=== PATIENT | female | born 1975 | race Caucasian/White ===

== ENCOUNTER 2016-11-03 17:52 | Emergency (ER) | payer OTHER ==
[~2016-11-03] VITALS: Ht 162.6 cm; Wt 83.9 kg
--- NOTE | ~2016-11-03 | US134 ---
[facility] A Service of [facility] RADIOLOGY TEXT RESULTS PATIENT: RHYS FOWLER LOCATION: [facility] : 73 UNIT #: [id number] AGE: [address]: Becky Vital MD SEX: F ORDER DR: [id number] [facility] [address] [place], [place] [address] [id number] E MR#: [id number] Acc #: [id number] NAME: RHYS FOWLER : 1975 SEX: F STUDY DATE/TIME: 11/03/2016 19:40 UNIT: [facility] ROOM: STUDY DESCRIPTION: US Transvaginal Attending Physician: Becky Vital M.D. Ordering Physician: Becky Vital M.D. Primary Care Physician: Rui Liu M.D. MEDICAL IMAGING REPORT This report is preliminary unless electronic signature is present EXAM Pelvic ultrasound. INDICATIONS Right adnexal pain for 1 day. Last menstrual period in 2012. Prior endometrial ablation and tubal ligation. G4, P3. COMPARISON Pelvic ultrasound 03/22/2010. FINDINGS The uterus is anteverted. The uterus measures 7.8 x 4.3 x 5.1 cm. Echogenicity and echotexture of the myometrium is homogeneous. The endometrial stripe is fairly homogeneous measuring 0.9-1.0 cm in thickness. The left ovary measures 2.1 x 1.7 x 1.7 cm. The right ovary measures 2.2 x 1.9 x 2 cm. Echogenicity and echotexture of the ovaries are normal. There is normal color Doppler flow. No adnexal mass or free pelvic fluid. IMPRESSION Negative pelvic ultrasound. Dictated by... Lyle De La Cruz M.D. THIS IS AN ELECTRONICALLY VERIFIED REPORT Lyle De La Cruz M.D. at 11/04/2016 3:11 PM Lacy/robetr TD: 11/03/2016 22:09 JOB #: [id number] [facility] A Service of [facility] RADIOLOGY TEXT RESULTS PATIENT: RHYS FOWLER LOCATION: [facility] #: [id number] : 73 UNIT #: [id number] AGE: [address]: Becky Vital MD SEX: F ORDER DR: MEDICAL IMAGING REPORT Page 1 of 1 COPY
--- NOTE | ~2016-11-03 | CT4 ---
[facility] A Service of [facility] RADIOLOGY TEXT RESULTS PATIENT: RHYS FOWLER LOCATION: [facility] : 73 UNIT #: [id number] AGE: [address]: Becky Vital MD SEX: F ORDER DR: [id number] [facility] [address] [place], [place] [address] [id number] E MR#: [id number] Acc #: [id number] NAME: RHYS FOWLER. : 1975 SEX: F STUDY DATE/TIME: 11/03/2016 20:10 UNIT: [facility] ROOM: STUDY DESCRIPTION: CT Abd and Pelv Wo Cont Attending Physician: Becky Vital M.D. Ordering Physician: Becky Vital M.D. Primary Care Physician: Rui Liu M.D. MEDICAL IMAGING REPORT This report is preliminary unless electronic signature is present EXAM CT of the abdomen and pelvis. INDICATIONS Right-sided abdominal pain. Right flank pain for 2 days. Mid abdominal pain. TECHNIQUE CT of the abdomen and pelvis without contrast. Coronal and sagittal reconstructions were obtained. This CT exam was performed with one or more of the following radiation dose reduction techniques: automatic exposure control, adjustment of mA and/or kV according to patient size, and iterative reconstruction. COMPARISON None available. FINDINGS ABDOMEN: No urinary calculi. No hydronephrosis. Noncontrast evaluation of the remaining solid abdominal organs are within normal limits. There is a calcified gallstone in the gallbladder fundus. No gallbladder distension. The bowel is not dilated. No enlarged retroperitoneal or mesenteric lymph nodes. The appendix is normal. PELVIS: Uterus and ovaries are within normal limits. Bladder is unremarkable. No acute osseous abnormalities. IMPRESSION 1. No acute findings of the abdomen and pelvis. No urinary calculi. No hydronephrosis. [facility] A Service of [facility] RADIOLOGY TEXT RESULTS PATIENT: RHYS FOWLER LOCATION: [facility] : 73 UNIT #: [id number] AGE: [address]: Becky Vital MD SEX: F ORDER DR: 2. Cholelithiasis. No gallbladder distension. Dictated by... Lyle De La Cruz M.D. THIS IS AN ELECTRONICALLY VERIFIED REPORT Lyle De La Cruz M.D. at 11/04/2016 3:12 PM JOSE/christophe TD: 11/03/2016 22:26 JOB #: [id number] MEDICAL IMAGING REPORT Page 1 of 1 COPY
[~2016-11-03 17:52] MED LIST: ABILIFY PO; ADVAIR 1001 DISK W/D PO; ADVAIR 2501 DISK W/D; ALBUTEROL17 GM; ALBUTEROL17 GM INH; ALLEGRA PO; ANTIVERT PO; ATARAX PO; ATIVAN PO; BACTROBAN22 GM TP; BENADRYL; BENADRYL PO; CIPRO PO; CLARITIN10 MG; CLARITIN10 MG PO; DETROL LA; DIFLUCAN PO; FAMOTIDINE PO; FLEXERIL10 MG PO; KEFLEX PO; LORTAB 5/500 TA1 TA1 PO; MEDROL PO; MEDROL4 MG/DOSE- PO; MUCINEX DM1 TAB.SR . PO; NASONEX17 GM; ORUDIS75 M1 PO; PREDNISONE PO; PREDNISONE5 M1 PO; ROBITUSSIN A-C-S1 ML PO; SEROQUEL PO; SINGULAIR PO; VICODIN PO; ZANTAC PO; ZITHROMAX1 G/PKT PO; ZOLOFT PO; ZYRTEC
[2016-11-03 19:53] LABS: URINE SOURCE CLEAN CATCH
[2016-11-03 19:57] LABS: BASOPHIL% 0.4 % (0-2.5); EOSINOPHIL# 0.1 X10e3 (0-0.7); EOSINOPHIL% 1.5 % (0.0-7.0); HEMATOCRIT 37.7 % (35.0-45.0); HEMOGLOBIN 12.8 gm/dL (12.0-16.0); LYMPHOCYTE# 2.8 X10e3 (1.0-3.5); LYMPHOCYTE% 30.1 % (17.0-45.0); MEAN CELL VOLUME 86.1 FL (83-96); MEAN CORPUSCULAR HEMOGLOBIN 29.2 PG (28-34); MEAN CORPUSCULAR HGB CONC 33.9 g/dL (30-36); MEAN PLATELET VOLUME 8.7 FL (6.5-11.5); MONOCYTE# 0.7 X10e3 (0-1.0); MONOCYTE% 7.4 % (3.0-12.0); NEUTROPHIL# 5.6 X10e3 (1.5-7.1); NEUTROPHIL% 60.6 % (40-75); PLATELET COUNT 250 X10e3 (140-420); RED BLOOD COUNT 4.38 X10e (3.90-5.30); RED CELL DISTRIBUTION WIDTH 12.9 % (11.0-15.5); WHITE BLOOD COUNT 9.3 X10e3 (4.0-10.5)
[2016-11-03 19:58] LABS: URINE APPEARANCE CLEAR; URINE BILIRUBIN NEG (NEG); URINE BLOOD NEG (NEG); URINE COLOR YELLOW; URINE GLUCOSE NEG (NEG); URINE KETONE NEG (NEG); URINE LEUKOCYTE ESTERASE NEG (NEG); URINE NITRATE NEG (NEG); URINE PH 5.5 (5-8); URINE PROTEIN NEG (NEG); URINE SPECIFIC GRAVITY 1.012 (1.003-1.035); URINE UROBILINOGEN 0.2 MG/DL (NEG)
[2016-11-03 20:04] LABS: CULTURE INDICATED? NO
[2016-11-03 20:05] LABS: DIFF IND NO
[2016-11-03 20:25] LABS: ALBUMIN SERUM 4.2 g/dL (3.5-5.0); BILIRUBIN, DIRECT 0.1 mg/dL (0.0-0.2); BILIRUBIN,INDIRECT 0.7 mg/dL (0.0-0.9); BILIRUBIN,TOTAL 0.8 mg/dL (0.2-2.0); BUN/CREATININE RATIO 13.75; CALCIUM SERUM 9.3 mg/dL (8.4-10.2); CREATININE SERUM 0.8 mg/dL (0.6-1.4); POTASSIUM 3.6 mmol/L (3.5-5.1); PROTEIN TOTAL SERUM 7.3 g/dL (6.0-8.3)
[2016-11-07 22:29] LABS: CHLAMYDIA TRACH Not Detected (Not Detected); N GONOR Not Detected (Not Detected)
== END 2016-11-03 22:15 | disposition home or self-care (01) ==
LOC: CED 17:52
PROVIDERS: Emergency Medicine
DX: R10.31 Right lower quadrant pain (principal); J45.909 Unspecified asthma, uncomplicated
CPT/HCPCS: 36415; 74176; 76830; 80048; 80076; 81003; 84703; 85025; 87491; 87591; 87808; 87905; 96374; 99284; J1885